=== PATIENT | male | born 1960 | race American Indian/Alaskan Native ===

== ENCOUNTER 2021-11-19 17:22 | Emergency (ER) | payer SELFPAY ==
[2021-11-20 05:25] LABS: Basophils % (Auto) 0.4 % (0.0-1.8); Eosinophils # (Auto) 0.2 K/mm3 (0.0-0.4); Eosinophils % (Auto) 2.8 % (0.0-4.3); Hematocrit 43.2 % (35.5-45.6); Hemoglobin 14.5 gm/dl (11.8-15.2); Lymphocytes # (Auto) 2.3 K/mm3 (1.2-5.4); Lymphocytes % (Auto) 34.4 % (13.4-35.0); Mean Corpuscular HGB Conc 34 % (32-34); Mean Corpuscular Volume 95 fl (84-94); Monocytes # (Auto) 0.6 K/mm3 (0.0-0.8); Monocytes % (Auto) 8.6 % (0.0-7.3); Platelet Count 154 K/mm3 (140-440); Red Blood Count 4.57 M/mm3 (3.65-5.03); Red Cell Distribution Width 14.3 % (13.2-15.2)
[2021-11-20 05:41] LABS: Bilirubin,Urine NEG (Negative); Blood,Urine SM (Negative); Color,Urine Yellow (Yellow); Mucus,Urine FEW /HPF; Protein,Urine <15 mg/dL mg/dL (Negative); Urobilinogen,Urine < 2.0 mg/dL (<2.0)
[2021-11-20 05:45] LABS: Amphetamine Screen,Urine Negative; Benzodiazepines Screen,Urine Negative; Cannabinoid Screen,Urine Negative; Methadone Screen,Urine Negative; Opiate Screen,Urine Negative
[2021-11-20 05:52] LABS: Alanine Aminotransferase 15 units/L (7-56); Albumin 3.9 g/dL (3.9-5); BUN/Creatinine Ratio 11; Blood Urea Nitrogen 10 mg/dL (9-20); Calcium 8.6 mg/dL (8.4-10.2); Hemolysis Index 8
[2021-11-20 05:58] LABS: Cocaine Screen,Urine Positive
--- NOTE | 2021-11-20 06:37 | Emergency Department Report ---
ED Medical Clearance HPI - General Chief complaint: Medical Clearance Stated complaint: NEED DETOX/MEDICAL CLEARANCE Time Seen by Provider: 11/20/21 04:27 Source: patient Mode of arrival: Ambulatory - History of Present Illness Initial comments: 61-year-old asthmatic male presents emergency department requesting clearance for admission [facility] detox[facility] as he reports having an issue with crack cocaine which she has been bilateral for For the past several years. History presents with his sister whom is his forests data assistant the primary for having wanted him to be clean. He reports no current issues with chest pain or palpitations no nausea vomiting or shortness of breath did have a nosebleed a few days ago. Last encounter with rectal pain was about 2 days ago. He reports no hemoptysis no hematemesis hematochezia, no hematuria no dysuria no flank pain. Place: home Alledged Intoxication: No Compliant with Home Medications: No Associated Symptoms: denies: palpitations, diaphoresis, fever/chills, headaches, anorexia Allergies/Adverse reactions: Allergies Allergy/AdvReac Type Severity Reaction Status Date / Time No Known Allergies Allergy Unverified 11/19/21 18:49 ED Review of Systems ROS: Stated complaint: NEED DETOX/MEDICAL CLEARANCE Other details as noted in HPI Comment: All other systems reviewed and negative ED Physical Exam - General Limitations: No Limitations General appearance: alert, in no apparent distress - Head Head exam: Present: atraumatic, normocephalic - Eye Eye exam: Present: normal appearance, PERRL, EOMI - ENT ENT exam: Present: mucous membranes moist - Neck Neck exam: Present: normal inspection - Respiratory Respiratory exam: Present: normal lung sounds bilaterally. Absent: respiratory distress - Cardiovascular Cardiovascular Exam: Present: regular rate, normal rhythm. Absent: systolic murmur, diastolic murmur, rubs, gallop - GI/Abdominal GI/Abdominal exam: Present: soft, normal bowel sounds - Rectal Rectal exam: Present: deferred - Extremities Exam Extremities exam: Present: normal inspection - Back Exam Back exam: Present: normal inspection - Neurological Exam Neurological exam: Present: alert, oriented X3, CN II-XII intact, normal gait - Psychiatric Psychiatric exam: Present: normal affect, normal mood. Absent: flat affect, manic, homicidal ideation, suicidal ideation - Skin Skin exam: Present: warm, dry, intact, normal color. Absent: rash ED Course Vital Signs 11/19/21 18:49 Temperature 98.5 F Pulse Rate 86 Respiratory 16 Rate Blood Pressure 124/90 O2 Sat by Pulse 98 Oximetry ED Medical Decision Making - Lab Data Result diagrams: 11/20/21 05:06 11/20/21 05:06 - Medical Decision Making There are no acute medical issues requiring hospitalization. The patient does not appear to have an acute medical condition at the time of discharge that would preclude confinement. The patient should return for repeat evaluation should any new or worsening symptoms develop. Medical evaluation performed. There is no clinical evidence of intoxication or any acute medical problem requiring immediate intervention. Final disposition will be determined by psychiatrist/or therapist upon his admission to the [facility]. ED Disposition Clinical Impression: Medical clearance for psychiatric admission Disposition: HOME / SELF CARE / HOMELESS Is pt being admited?: No Does the pt Need Aspirin: No Condition: Stable Instructions: Medical Screening Exam Additional Instructions: Medically clear for use detoxification program Referrals: EVER BLAKE MD [Primary Care Provider] - 3-5 Days
[2021-11-20 08:46] VITALS: BP 129/89
== END 2021-11-20 08:44 | disposition home or self-care (01) ==
LOC: ED 17:22
DX: Z13.30 Encounter for screening examination for mental health and behavioral disorders, unspecified (principal); Z79.899 Other long term (current) drug therapy
CPT/HCPCS: 36415; 80053; 80307; 80320; 81001; 85025; 87086; 99283; G0480